=== PATIENT | female | born 1960 | race Caucasian/White ===

== ENCOUNTER 2022-02-21 09:49 | Observation (INO) | payer BC ==
[2022-02-21 11:31] LABS: BASO % 0.5 % (0-2.0); EOS % 1.2 % (0-4.5); HEMATOCRIT 44.4 % (32.4-45.2); HEMOGLOBIN 14.2 GM/dL (10.7-15.3); LYMPH % 29.7 % (8-40); MEAN CELL VOLUME 87.5 fl (80-96); MEAN PLT VOLUME 8.9 fl (7.5-11.1); MONO % 7.5 % (3.8-10.2); NEUT % 61.1 % (42.8-82.8); PLATELET COUNT 301 10^3/uL (134-434); RBC 5.08 M/mm3 (3.60-5.2); RDW 13.7 % (11.6-15.6); WHITE BLOOD COUNT 9.4 K/mm3 (4.0-10.0)
[2022-02-21 11:33] LABS: EPI CELLS 29 /uL (0-25.1); HYALINE CASTS 2 /uL (0-3.1); PH,URINE 5.5 (5.0-8.0); URINE APPEARANCE CLEAR; URINE BACTERIA 76 /uL (0-1359); URINE BILIRUBIN NEGATIVE (NEGATIVE); URINE COLOR YELLOW; URINE GLUCOSE (UA) NEGATIVE (NEGATIVE); URINE KETONE NEGATIVE (NEGATIVE); URINE LEUK ESTERASE 3+ (NEGATIVE); URINE NITRITE NEGATIVE (NEGATIVE); URINE PROTEIN NEGATIVE (NEGATIVE); URINE RBC 10 /uL (0-23.9); URINE WBC 256 /uL (0-25.8)
[2022-02-21] MEDS ORDERED: ONDANSETRON 4 MG/2 ML VIAL IVPUSH ONE (11:33)
[2022-02-21] MEDS ORDERED: ACETAMINOPHEN 1000 MG/100 ML BAG IVPB ONE (11:33)
[2022-02-21] MEDS ORDERED: SODIUM CHLORIDE 1,000 ML IV STA (11:33)
[2022-02-21] MEDS ORDERED: ONDANSETRON 4 MG/2 ML VIAL ONE (11:46)
[2022-02-21] MEDS ORDERED: ACETAMINOPHEN INJECTION 100 ML IVPB ONE (11:46)
[2022-02-21 11:50] LABS: ALBUMIN 4.4 g/dl (3.4-5.0); CALCIUM 10.8 mg/dL (8.5-10.1)
[2022-02-21 11:51] LABS: BLOOD UREA NITROGEN 13.5 mg/dL (7-18)
[2022-02-21 11:53] LABS: CREATININE 0.8 mg/dL (0.55-1.3)
[2022-02-21 11:56] LABS: BILIRUBIN,TOTAL 0.4 mg/dL (0.2-1); TOT PROT 7.3 g/dl (6.4-8.2)
[2022-02-21] MEDS ORDERED: CEFTRIAXONE 1,000 MG in DEXTROSE 5%-WATER - 50 ML IVPB ONE (17:26)
[2022-02-21] MEDS ORDERED: ASPIRIN 325 MG TABLET PO ONE (18:01)
[2022-02-21] MEDS ORDERED: ATORVASTATIN CA 80 MG TABLET (FP) PO ONE (18:01)
[2022-02-21] MEDS ORDERED: ONDANSETRON 4 MG/2 ML VIAL IVPUSH PRN (18:14)
[2022-02-21] MEDS ORDERED: ACETAMINOPHEN 325 MG TABLET (FP) PO PRN (18:29)
[2022-02-21] MEDS ORDERED: ENOXAPARIN NA (PORCINE) 40 MG/0.4 ML DISP.SYRIN SQ SCH (18:30)
[2022-02-21] MEDS ORDERED: ASPIRIN 325 MG TABLET ONE (18:47)
[2022-02-21] MEDS: amLODIPine BESYLATE 10 MG TABLET (FP) PO SCH (18:47)
[2022-02-21] MEDS ORDERED: CEFTRIAXONE 1 GM/50 ML BAG ONE (18:47)
[2022-02-21] MEDS ORDERED: ATORVASTATIN CA 80 MG TABLET (FP) ONE (18:47)
[2022-02-21] MEDS ORDERED: amLODIPine BESYLATE 5 MG TABLET (FP) ONE (18:47)
[2022-02-21] MEDS ORDERED: metoPROLOL SUCCINATE 25 MG TAB.SR.24H (FP) PO ONE (18:49)
[2022-02-21] MEDS ORDERED: LOSARTAN POTASSIUM 50 MG TABLET ONE (18:49)
[2022-02-21] MEDS ORDERED: ENOXAPARIN NA (PORCINE) 40 MG/0.4 ML DISP.SYRIN SQ ONE (18:50)
[2022-02-21] MEDS: LOSARTAN POTASSIUM 50 MG TABLET PO SCH (18:53)
[2022-02-21] MEDS: metoPROLOL SUCCINATE 25 MG TAB.SR.24H (FP) PO SCH (18:53)
[2022-02-21] MEDS ORDERED: PATIENT'S OWN MEDICATION (NON-FORMULARY) (Oxcarbazepine [Oxtellar Xr] 600 MG Tab.Er.24h) PO SCH (22:00)
[2022-02-22 02:08] LABS: N-TERMINAL BNP 53.2 pg/ml (5-125)
[2022-02-22 02:25] LABS: URINE BARBITURATES NEGATIVE (NEGATIVE)
[2022-02-22 02:26] LABS: COCAINE, UR NEGATIVE (NEGATIVE); METHADONE, UR NEGATIVE (NEGATIVE); PHENCYCLIDINE,URINE NEGATIVE (NEGATIVE); URINE BENZODIAZEPINES NEGATIVE (NEGATIVE)
[2022-02-22 02:27] LABS: OPIATES, URI NEGATIVE (NEGATIVE); URINE AMPHETAMINES NEGATIVE (NEGATIVE)
[2022-02-22] MEDS: INSULIN SLIDING SCALE (NOVOLOG) 1 VIAL SQ SCH ×3 (06:37→17:51)
[2022-02-22 08:15] LABS: BASO % 0.6 % (0-2.0); EOS % 1.3 % (0-4.5); HEMATOCRIT 41.2 % (32.4-45.2); HEMOGLOBIN 13.3 GM/dL (10.7-15.3); LYMPH % 30.5 % (8-40); MCH 27.9 pg (25.7-33.7); MCHC 32.2 g/dl (32.0-36.0); MEAN CELL VOLUME 86.7 fl (80-96); MEAN PLT VOLUME 8.9 fl (7.5-11.1); MONO % 7.6 % (3.8-10.2); PLATELET COUNT 233 10^3/uL (134-434); RBC 4.75 M/mm3 (3.60-5.2); RDW 13.6 % (11.6-15.6); WHITE BLOOD COUNT 8.8 K/mm3 (4.0-10.0)
[2022-02-22 08:42] LABS: CALCIUM 9.9 mg/dL (8.5-10.1)
[2022-02-22 08:43] LABS: BLOOD UREA NITROGEN 10.4 mg/dL (7-18); MAGNESIUM 1.7 mg/dL (1.8-2.4)
[2022-02-22 08:46] LABS: CREATININE 0.6 mg/dL (0.55-1.3)
[2022-02-22] MEDS ORDERED: amLODIPine BESYLATE 10 MG TABLET (FP) ONE (09:36)
[2022-02-22] MEDS ORDERED: LOSARTAN POTASSIUM 50 MG TABLET ONE (09:36)
[2022-02-22] MEDS ORDERED: ASPIRIN 81 MG CHEWABLE TABLETS ONE (09:36)
[2022-02-22] MEDS ORDERED: CEFTRIAXONE 1 GM/50 ML BAG ONE (09:37)
[2022-02-22] MEDS: ASPIRIN 81 MG CHEWABLE TABLETS PO SCH (09:52)
[2022-02-22] MEDS: amLODIPine BESYLATE 10 MG TABLET (FP) PO SCH (09:52)
[2022-02-22] MEDS: CEFTRIAXONE 1 GM in DEXTROSE 5%-WATER - 50 ML IVPB SCH (09:52)
[2022-02-22] MEDS: LOSARTAN POTASSIUM 50 MG TABLET PO SCH (09:52)
[2022-02-22] MEDS ORDERED: REGADENOSON 0.4 MG/5 ML PRE-FILLED SYRINGE IVPUSH ONE ×2 (11:01→11:15)
[2022-02-22] MEDS ORDERED: MAGNESIUM 2GM/50ML STERILE WATER IVPB IVPB ONE (12:46)
[2022-02-22] MEDS ORDERED: SODIUM CHLORIDE 500 ML IV ONE (13:30)
[2022-02-22] MEDS ORDERED: MAG HYDROX/AL HYDROX/SIMETH 30 ML UNIT-DOSE CUP PO ONE (13:58)
[2022-02-22] MEDS ORDERED: MAGNESIUM SULFATE IN WATER 2 GM/50 ML IVPB IVPB ONE (14:33)
[2022-02-22] MEDS ORDERED: MAG HYDROX/AL HYDROX/SIMETH 30 ML UNIT-DOSE CUP ONE (14:33)
[2022-02-22] MEDS ORDERED: ATORVASTATIN CA 20 MG TABLET (FP) ONE (15:35)
[2022-02-22] MEDS: ATORVASTATIN CA 20 MG TABLET (FP) PO SCH (15:45)
[2022-02-22] MEDS ORDERED: DOCUSATE SODIUM 100 MG CAPSULE (FP) PO ONE ×2 (18:39→19:09)
[2022-02-22] MEDS: metoPROLOL SUCCINATE 25 MG TAB.SR.24H (FP) PO SCH (18:57)
[2022-02-22] MEDS ORDERED: metoPROLOL SUCCINATE 25 MG TAB.SR.24H (FP) PO ONE ×2 (21:21→22:24)
[2022-02-22] MEDS ORDERED: ATORVASTATIN CA 40 MG TABLET (FP) PO SCH (22:00)
[2022-02-22] MEDS ORDERED: OXcarbazepine 300 MG TABLET (UD) PO SCH (22:00)
[2022-02-22] MEDS ORDERED: SENNOSIDES 8.6MG TABLET (FP) PO SCH (22:00)
[2022-02-22] MEDS ORDERED: ATORVASTATIN CA 10 MG TABLET (FP) PO SCH (22:00)
[2022-02-22] MEDS ORDERED: SENNOSIDES 8.6MG TABLET (FP) PO ONE (22:24)
[2022-02-22] MEDS: OXcarbazepine 300 MG TABLET (UD) PO SCH (22:38)
[2022-02-22 22:39] VITALS: RESP 18
[2022-02-23 02:37] VITALS: BMI 30.4
[2022-02-23] MEDS: INSULIN SLIDING SCALE (NOVOLOG) 1 VIAL SQ SCH ×3 (06:22→17:42)
[2022-02-23 08:12] LABS: HEMATOCRIT 41.4 % (32.4-45.2); MCH 29.3 pg (25.7-33.7); MCHC 33.8 g/dl (32.0-36.0); MEAN CELL VOLUME 86.7 fl (80-96); MEAN PLT VOLUME 8.3 fl (7.5-11.1); PLATELET COUNT 250 10^3/uL (134-434); RBC 4.78 M/mm3 (3.60-5.2); RDW 13.3 % (11.6-15.6); WHITE BLOOD COUNT 9.3 K/mm3 (4.0-10.0)
[2022-02-23 08:39] LABS: CALCIUM 9.8 mg/dL (8.5-10.1)
[2022-02-23 08:40] LABS: BLOOD UREA NITROGEN 10.1 mg/dL (7-18); MAGNESIUM 2.3 mg/dL (1.8-2.4)
[2022-02-23 08:43] LABS: CREATININE 0.6 mg/dL (0.55-1.3); PHOSPHOROUS 3.2 mg/dL (2.5-4.9)
[2022-02-23 08:44] LABS: BILIRUBIN,TOTAL 0.4 mg/dL (0.2-1); TOT PROT 6.7 g/dl (6.4-8.2)
[2022-02-23] MEDS: ATORVASTATIN CA 20 MG TABLET (FP) PO SCH (09:22)
[2022-02-23] MEDS: LOSARTAN POTASSIUM 50 MG TABLET PO SCH (09:22)
[2022-02-23] MEDS: ASPIRIN 81 MG CHEWABLE TABLETS PO SCH (09:22)
[2022-02-23] MEDS: metoPROLOL SUCCINATE 25 MG TAB.SR.24H (FP) PO SCH (09:22)
[2022-02-23] MEDS: CEFTRIAXONE 1 GM in DEXTROSE 5%-WATER - 50 ML IVPB SCH (09:47)
[2022-02-23] MEDS: OXcarbazepine 300 MG TABLET (UD) PO SCH (09:57)
[2022-02-23] MEDS ORDERED: amLODIPine BESYLATE 10 MG TABLET (FP) PO SCH (10:00)
[2022-02-23] MEDS ORDERED: ENOXAPARIN NA (PORCINE) 40 MG/0.4 ML DISP.SYRIN SQ SCH (10:00)
[2022-02-23] MEDS ORDERED: HYDROCHLOROTHIAZIDE 12.5 MG CAPSULE (FP) PO SCH (10:00)
[2022-02-23] MEDS ORDERED: FAMOTIDINE 20 MG TABLET PO SCH (10:00)
[2022-02-23] MEDS ORDERED: POLYETHYLENE GLYCOL (HEALTHYLAX) 3350 17 GM PACKET PO SCH (11:30)
[2022-02-23 18:31] VITALS: BP 128/79; PULSE 65; TEMP 99.1
== END 2022-02-23 18:33 | disposition home or self-care (01) ==
LOC: JER 09:49 → JERBED 17:27 → J4W 02-23 01:38
PROVIDERS: ATTEND Internal Medicine
PROC: 3E033NZ Introduction of Analgesics, Hypnotics, Sedatives into Peripheral Vein, Percutaneous Approach (ICD-10-PCS; principal; 2022-02-21)
PROC: 3E03329 Introduction of Other Anti-infective into Peripheral Vein, Percutaneous Approach (ICD-10-PCS; 2022-02-21)
PROC: 3E023GC Introduction of Other Therapeutic Substance into Muscle, Percutaneous Approach (ICD-10-PCS; 2022-02-21)
PROC: 3E033GC Introduction of Other Therapeutic Substance into Peripheral Vein, Percutaneous Approach (ICD-10-PCS; 2022-02-21)
PROC: 3E0337Z Introduction of Electrolytic and Water Balance Substance into Peripheral Vein, Percutaneous Approach (ICD-10-PCS; 2022-02-21)
DX: R07.9 Chest pain, unspecified (principal); R30.0 Dysuria; I10 Essential (primary) hypertension; E11.9 Type 2 diabetes mellitus without complications; E78.5 Hyperlipidemia, unspecified; E66.8 Other obesity; Z68.30 Body mass index [BMI] 30.0-30.9, adult
CPT/HCPCS: 0241U-QW; 36415; 71045-TC-FY; 71275-TC; 74177-TC; 76705-TC; 78452-TC; 80048; 80053; 80061; 80307; 81003; 82550; 82962; 83036; 83690; 83735; 83880; 84100; 84443; 84484; 85025; 85027; 85730; 87086; 87899; 93005; 93010; 93017; 93306-TC; 99285-25; A9502; G0378; J2785; Q9967

== ENCOUNTER 2024-04-01 07:55 | Emergency (ER) | payer BC ==
[2024-04-01 08:14] VITALS: BMI 27.9
[2024-04-01] MEDS: FAMOTIDINE 20 MG/50 ML IVPB 20 MG/50 ML MG IVPB ONE (09:38)
[2024-04-01] MEDS: SODIUM CHLORIDE 1,000 ML IV STA (09:38)
[2024-04-01] MEDS ORDERED: FAMOTIDINE 20 MG/50 ML IVPB 20 MG/50 ML MG IVPB ONE (09:39)
[2024-04-01 10:02] LABS: BASO % 0.5 % (0-2.0); EOS % 0.9 % (0-4.5); HEMATOCRIT 37.4 % (32.4-45.2); HEMOGLOBIN 12.4 GM/dL (10.7-15.3); MCH 28.6 pg (25.7-33.7); MCHC 33.2 g/dl (32.0-36.0); MEAN CELL VOLUME 86.2 fl (80-96); MEAN PLT VOLUME 7.4 fl (7.5-11.1); MONO % 8.4 % (3.8-10.2); NEUT % 46.2 % (42.8-82.8); PLATELET COUNT 271 10^3/uL (134-434); RBC 4.34 M/mm3 (3.60-5.2); RDW 14.4 % (11.6-15.6); WHITE BLOOD COUNT 6.9 K/mm3 (4.0-10.0)
[2024-04-01 10:03] LABS: PH,URINE 5.5 (5.0-8.0); URINE APPEARANCE Clear; URINE BILIRUBIN 1+ (NEGATIVE); URINE COLOR Yellow; URINE GLUCOSE (UA) Negative (NEGATIVE); URINE KETONE Negative (NEGATIVE); URINE LEUK ESTERASE 1+ (NEGATIVE); URINE NITRITE Negative (NEGATIVE); URINE PROTEIN 1+ (NEGATIVE); URINE UROBILINOGEN 0.2 mg/dL (0.2-1.0)
[2024-04-01 10:05] LABS: EPI CELLS 38 /uL (0-25.1); HYALINE CASTS 6 /uL (0-3.1); URINE BACTERIA 607 /uL (0-1359); URINE RBC 19 /uL (0-23.9); URINE WBC 98 /uL (0-25.8)
[2024-04-01 10:21] LABS: POTASSIUM 3.8 mmol/L (3.5-5.1)
[2024-04-01 10:23] LABS: ALBUMIN 3.1 g/dl (3.4-5.0); CALCIUM 9.3 mg/dL (8.5-10.1); MAGNESIUM 1.8 mg/dL (1.8-2.4)
[2024-04-01 10:26] LABS: CREATININE 0.9 mg/dL (0.55-1.3)
[2024-04-01 10:28] LABS: BILIRUBIN,TOTAL 0.5 mg/dL (0.2-1); TOT PROT 6.2 g/dl (6.4-8.2)
[2024-04-01 13:28] VITALS: BP 117/63; PULSE 70; RESP 20; TEMP 98
== END 2024-04-01 13:44 | disposition home or self-care (01) ==
LOC: JER 07:55
PROC: 3E033GC Introduction of Other Therapeutic Substance into Peripheral Vein, Percutaneous Approach (ICD-10-PCS; principal; 2024-04-01)
DX: N30.00 Acute cystitis without hematuria (principal); R53.1 Weakness; R11.0 Nausea; R53.81 Other malaise; R63.0 Anorexia; R63.4 Abnormal weight loss; R09.81 Nasal congestion; R04.0 Epistaxis
CPT/HCPCS: 36415; 80053; 81003; 83690; 83735; 84484; 85025; 93005; 93010; 99284-25